=== PATIENT | male | born 1965 | race Caucasian/White ===

== ENCOUNTER → 2024-01-07 09:04 | Outpatient (REF) | payer OTHER, SELFPAY | LOC: RAD 09:04 | PROVIDERS: ATTENDING PHYSICIAN Physician Assistant Medical; FAMILY PHYSICIAN Family Medicine | DX: R19.09 Other intra-abdominal and pelvic swelling, mass and lump (principal) | CPT/HCPCS: 76705 ==

== ENCOUNTER 2024-06-08 11:40 | Emergency (ER) | payer OTHER, SELFPAY ==
[2024-06-08 11:51] VITALS: BP 136/90
--- NOTE | 2024-06-08 11:54 | ED.GENMED ---
ED Provider Triage
<SETH Gaines - Last Filed: 06/08/24 11:57>
-
Patient seen by provider in Triage?: Seen in Triage
Attestation: A medical screening examination has been initiated by a qualified medical provider. Based on the assessment performed at this time, it has been determined that an emergent medical condition may exist and the patient has been informed
that further medical evaluation and possible additional diagnostic testing may be needed.
HPI: 58 yr old male c/o of lower abd pain since May 24, getting worse. Pt has hx of diverticulitis and this feels the same. No fever. no vomiting, + sm amt of diarrhea
GENERAL: Alert , in no apparent distress
EYE: No visual abnormalities.
NECK: Trachea midline
ENT: No visible abnormalities.
LUNGS: No acute respiratory distress
NEUROLOGICAL: Alert and oriented
SKIN: Skin intact. No visible changes.
MUSCULOSKELETAL: Moving extremities normally
PSYCH: Normal and appropriate interaction.
This is a medical evaluation conducted in person to initiate diagnostic evaluation and provide initial therapeutics. Please see further documentation by the treating clinician.
History of Present Illness
<SETH Gaines - Last Filed: 06/08/24 11:57>
General
Chief Complaint: Abdominal Pain
Time Seen by Provider: 06/08/24 12:14
<Deepthi Floyd PA-C - Last Filed: 06/08/24 17:44>
General
Source: patient and records
Exam Limitations: none
History of Present Illness
History of Present Illness:
58yoM with a history of diverticulosis, hyperlipidemia, AIME, obesity, gout, GERD, and anxiety presenting for evaluation of abdominal pain. Symptoms began around Gustavo time and have been constant over the past week. He reports a pain throughout
his lower abdomen which 'feels like a sprain.' Pain is worse with eating. His pain feels similar to his prior bouts of diverticulitis. He called his PCP today and he was advised to come to the ED for evaluation. He also endorses diarrhea and
increased urination. 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 He denies any fevers, chills, vomiting. Previous abdominal surgeries include an umbilical hernia repair.
Past History
<SETH Gaines - Last Filed: 06/08/24 11:57>
Past History
ED Past Medical History: Hypercholesterolemia, Psychiatric (Anxiety) and Other (Diverticulitis, mesenteric artery dissection)
ED Past Surgical History: Other (Hernia repair)
Social History
Tobacco: 2nd hand smoke exposure
Alcohol: None
Drug: None
Personal:
Living: with family
Phy Exam
<Deepthi Floyd PA-C - Last Filed: 06/08/24 17:44>
General Physical Exam
General Presentation: well appearing and no apparent distress
General age: appears stated age
General Skin: warm and dry
General Habitus: normal
General Mental: alert
ENT Exam
ENT Exam: normocephalic
Pulmonary Exam
Pulmonary Exam: no respiratory distress
Gastrointestinal Exam
Gastrointestinal Exam: soft, non distended and other (+Tenderness in suprapubic, LUQ, LLQ regions. No rebound or guarding. Umbilical hernia present that is reducible and non-tender without skin changes.)
Neurological Exam
Neurological Exam: alert
Ric Coma Scale
Eye Opening: Spontaneous
Verbal Response: Oriented
Motor Response: Obeys Commands
GCS Total Score: 15
Skin Exam
Skin Exam: normal color and warm/dry
Psychiatric Exam
Psychiatric Exam: normal mood/affect
Course
<SETH Gaines - Last Filed: 06/08/24 11:57>
Orders/Labs/Results
Orders:
Orders
06/08/24 12:03
Complete Blood Count/With Diff Urgent
Comprehensive Metabolic Panel Urgent
Lipase Urgent
06/08/24 12:30
CT Abd/pelvis Angio W/wo Iv Urgent
Comment:
Reason For Exam: Lower abd pain, hx of SMA dissection
06/08/24 12:38
Lactate Level [Lactic Acid] Urgent
06/08/24 15:15
Urinalysis Reflex To Culture Urgent
Date Specimen was Collected: 06/08/24
Time Specimen was Collected: 15:08
Abnormal Lab Results
06/08/24
12:03
MCH 31.8 H pg
(27.0-31.0)
Immature Gran % 0.7 H %
(0-0.5)
Lymphocytes % 20.1 L %
(20.5-51.1)
Glucose 107 H mg/dl
(70-99)
AST 62 H U/L
(17-59)
ALT 81 H U/L
(0-50)
06/08/24 12:03
06/08/24 12:03
Vital Signs
Initial and Last Documented VS:
Initial Vital Signs
Temp Pulse Resp BP Pulse Ox
98.5 F 86 16 136/90 98
06/08/24 11:51 06/08/24 11:51 06/08/24 11:51 06/08/24 11:51 06/08/24 11:51
Last Documented Vital Signs
Temp Pulse Resp BP Pulse Ox
98.5 F 68 18 142/102 98
06/08/24 11:51 06/08/24 15:52 06/08/24 15:52 06/08/24 15:52 06/08/24 15:52
Makaylalt;Deepthi Floyd PA-C - Last Filed: 06/08/24 17:44>
Orders/Labs/Results
Orders:
Orders
06/08/24 12:03
Complete Blood Count/With Diff Urgent
Comprehensive Metabolic Panel Urgent
Lipase Urgent
06/08/24 12:30
CT Abd/pelvis Angio W/wo Iv Urgent
Comment:
Reason For Exam: Lower abd pain, hx of SMA dissection
06/08/24 12:38
Lactate Level [Lactic Acid] Urgent
06/08/24 15:15
Urinalysis Reflex To Culture Urgent
Date Specimen was Collected: 06/08/24
Time Specimen was Collected: 15:08
Abnormal Lab Results
06/08/24
12:03
MCH 31.8 H pg
(27.0-31.0)
Immature Gran % 0.7 H %
(0-0.5)
Lymphocytes % 20.1 L %
(20.5-51.1)
Glucose 107 H mg/dl
(70-99)
AST 62 H U/L
(17-59)
ALT 81 H U/L
(0-50)
06/08/24 12:03
06/08/24 12:03
Vital Signs
Initial and Last Documented VS:
Initial Vital Signs
Temp Pulse Resp BP Pulse Ox
98.5 F 86 16 136/90 98
06/08/24 11:51 06/08/24 11:51 06/08/24 11:51 06/08/24 11:51 06/08/24 11:51
Last Documented Vital Signs
Temp Pulse Resp BP Pulse Ox
98.5 F 68 18 142/102 98
06/08/24 11:51 06/08/24 15:52 06/08/24 15:52 06/08/24 15:52 06/08/24 15:52
Makaylalt;Deepthi Floyd PA-C - Last Filed: 06/08/24 17:44>
MDM/Problems Addressed
Differential Diagnosis Includes:
58yoM here with lower abd pain for over a week. Feels like a diverticulitis flare. No f/c. Hx of SMA dissection in 2019. VSS. He is well appearing in no distress. No signs of peritonitis on abdominal exam. Differential diagnosis includes but is not
limited to: diverticulitis, colitis, UTI, kidney stone, less likely mesenteric ischemia
Initial ED plan: Abdominal labs obtained in triage. Will add lactate and obtain CTA abdomen.
<Deepthi Floyd PA-C - Last Filed: 06/08/24 17:44>
*Critical Care Note
Total Time (30-74mins, 75-104mins- exclusive of procedures): Not Applicable
<Deepthi Floyd PA-C - Last Filed: 06/08/24 17:44>
Update Note
Update Note:
Labs reveal a mild transaminitis which is improving from prior labs. White count and lactate normal. UA bland without signs of infection. CT shows evidence of mild diverticulitis. No perforation or abscess noted and there is evidence of SMA
dissection. He was started on a course of Augmentin. Advised clear liquid diet until pain improves. Advised PCP f/u and strict ED return precautions discussed. He expressed understanding and is in agreement with plan. He was discharged in stable
condition.
ED Attending Note
<SETH Gaines - Last Filed: 06/08/24 11:57>
-
Portions of this chart may have been created with voice recognition software.� Occasional wrong word or��sound alike� substitutions may have occurred due to the inherent limitations of voice recognition software.
Discharge Plan
Departure
Patient Disposition: Home (Routine Discharge)
Date of Disposition: 06/08/24
Time of Disposition: 15:29
Patient with high blood pressure during this ER visit?: No
Discharge Problem:
Acute diverticulitis
Instructions: Diverticulitis (DC)
Prescriptions:
New
amoxicillin-pot clavulanate 875-125 mg tablet
1 tab PO BID Qty: 20 0RF
No Action
lorazepam 0.5 MG tablet
0.5 mg PO DAILY
allopurinol 100 MG tablet
200 mg PO DAILY
metaxalone [Skelaxin] 800 MG tablet
800 mg PO DAILY
metronidazole 500 MG tablet
500 mg PO TID Qty: 30 0RF
clopidogrel 75 MG tablet
75 mg PO DAILY
ciprofloxacin HCl 500 MG tablet
500 mg PO BID
aspirin 81 MG tablet,delayed release (DR/EC)
81 mg PO DAILY
pantoprazole 40 MG tablet,delayed release (DR/EC)
40 mg PO DAILY Qty: 30 0RF
amoxicillin-pot clavulanate 1 TABLET tablet
1 tab PO Q12 Qty: 20 0RF
Referrals:
Nathen Kim DO [Family Provider] -
Activity Restrictions/Additional Instructions:
Take antibiotics as prescribed. Eat a clear liquid diet until pain improves.
Please follow-up with your family doctor. Return to the ER with any worsening symptoms, severe pain, or fevers.
Interventions
Interventions:
*Risk Screen - Suicide Last Done: 06/08/24 11:51
*General Assessment Last Done: 06/08/24 11:51
*Neglect/Abuse Screening Last Done: 06/08/24 11:51
*ED COVID-19 Vaccine History Last Done: 06/08/24 11:51
*Nursing Disposition Last Done: 06/08/24 15:54
[facility] Assessment Last Done: 06/08/24 12:25
Discharge Date and Time
Discharge Date/Time: 06/08/24 15:54
Print Language: TELUGU
[2024-06-08 11:56] VITALS: BMI 34.4
[2024-06-08 12:32] LABS: % Basophils 1.4 % (0-2); % Eosinophils 4.2 % (0-6); % Immature Granulocytes 0.7 % (0-0.5); % Lymphocytes 20.1 % (20.5-51.1); % Monocytes 8.8 % (1.7-9.3); % Neutrophils 64.8 % (42.2-75.2); Absolute Basophils 0.1 10^3/uL (0-0.2); Absolute Eosinophils 0.3 10^3/uL (0-0.7); Absolute Lymphocytes 1.2 10^3/uL (1.2-3.4); Absolute Monocytes 0.5 10^3/uL (0.1-0.6); Absolute Neutrophils 3.8 10^3/uL (1.4-6.5); Hematocrit 47.1 % (39.0-52.0); Hemoglobin 16.2 g/dL (13.0-18.0); Mean Corp Hgb Conc. 34.4 g/dL (33.0-37.0); Mean Corpuscular Hgb 31.8 pg (27.0-31.0); Mean Corpuscular Volume 92.5 fL (80.0-94.0); Mean Platelet Volume 9.7 fL (7.4-10.4); Nucleated Red Blood Cells % 0 % (-); Platelet Count 201 10^3/uL (130-400); Red Blood Cell Count 5.09 10^6/uL (4.70-6.10); Red Cell Dist. Width 13.3 % (11.5-14.5); White Blood Cell Count 5.9 10^3/uL (4.8-10.8)
[2024-06-08 12:52] LABS: ALT (SGPT) 81 U/L (0-50); AST (SGOT) 62 U/L (17-59); Albumin 4.7 g/dl (3.5-5.0); Alkaline Phosphatase 68 U/L (38-126); Blood Urea Nitrogen 15 mg/dl (9-20); Calcium 9.2 mg/dl (8.4-10.2); Carbon Dioxide 27 mmol/L (22-30); Chloride 102 mmol/L (98-107); Estimated Creatinine Clearance 84 ml/min; Glucose 107 mg/dl (70-99); Lipase 42 U/L (23-300); Potassium 4.4 mmol/L (3.5-5.1); Sodium 138 mmol/L (135-145); Total Bilirubin 0.6 mg/dl (0.2-1.3); Total Protein 7.4 g/dl (6.3-8.2); eGFR > 60.00
[2024-06-08 13:05] LABS: Lactic Acid 0.9 mmol/L (0.7-2.0)
[2024-06-08 15:37] LABS: Urine Albumin Trace (Neg - Trace); Urine Bilirubin Negative (Negative); Urine Character Clear (Clear); Urine Color Yellow; Urine Glucose Negative (Negative); Urine Ketone Negative (Negative); Urine Leukocyte Negative (Negative); Urine Nitrite Negative (Negative); Urine Occult Blood Negative (Negative); Urine Urobilinogen Negative (Neg - 1+)
[2024-06-08 15:52] VITALS: BP 142/102
== END 2024-06-08 15:54 | disposition home or self-care (01) ==
LOC: EMR 11:40
PROVIDERS: Nurse Practitioner; Physician Assistant; EMERGENCY PHYSICIAN Emergency Medicine; FAMILY PHYSICIAN Family Medicine
DX: K57.32 Diverticulitis of large intestine without perforation or abscess without bleeding (principal); E78.00 Pure hypercholesterolemia, unspecified; E66.9 Obesity, unspecified; M10.9 Gout, unspecified; K21.9 Gastro-esophageal reflux disease without esophagitis; F41.9 Anxiety disorder, unspecified; Z77.22 Contact with and (suspected) exposure to environmental tobacco smoke (acute) (chronic); G47.33 Obstructive sleep apnea (adult) (pediatric); K42.9 Umbilical hernia without obstruction or gangrene; I77.79 Dissection of other specified artery; Z91.048 Other nonmedicinal substance allergy status
CPT/HCPCS: 99284; 74174; 80053; 81003; 83605; 83690; 85025; Q9967